=== PATIENT | male | born 1985 | race Caucasian/White ===

== ENCOUNTER 2020-07-26 10:45 | Emergency (ER) | payer SELFPAY ==
[~2020-07-26] VITALS: Ht 190.5 cm; Wt 100.0 kg
[~2020-07-26 10:45] MED LIST: HYDROCODONE-APA1 TAB PO; PHENERGAN25 M1 PO
[2020-07-26 11:15] VITALS: BP 151/91; Ht 190.5 cm; Wt 100.0 kg
[2020-07-26] MEDS ORDERED: TEMOVATE30 GM TOPICAL (11:33)
== END 2020-07-26 12:17 | disposition home or self-care (01) ==
LOC: D.ER 10:45
DX: L25.9 Unspecified contact dermatitis, unspecified cause (principal)